=== PATIENT | female | born 1995 | race Caucasian/White ===

== ENCOUNTER 2017-06-29 20:35 | Emergency (ER) | payer BC ==
[~2017-06-29] VITALS: Ht 154.9 cm; Wt 79.5 kg
[~2017-06-29 20:35] MED LIST: ADVAIR 250/501 DISK IH; ALBUTEROL SULF8.5 GM IH; FLUOXETINE HCL20 MG PO; NOHOMEMEDS; PREDNISONE20 MG PO
[2017-06-29] MEDS ORDERED: AUGMENTIN875 MG PO (23:16)
[2017-06-30 00:42] VITALS: BP 125/89
[2017-06-30] MEDS ORDERED: MOTRIN800 MG PO (20:07)
[2017-06-30] MEDS ORDERED: ULTRACET1 TABLET PO (20:07)
== END 2017-06-30 00:58 | disposition home or self-care (01) ==
LOC: EME 20:35
PROC: 3E0234Z Introduction of Serum, Toxoid and Vaccine into Muscle, Percutaneous Approach (ICD-10-PCS; principal; 2017-06-29)
DX: L03.113 Cellulitis of right upper limb (principal); S60.812A Abrasion of left wrist, initial encounter; S60.811A Abrasion of right wrist, initial encounter; S50.812A Abrasion of left forearm, initial encounter; S50.811A Abrasion of right forearm, initial encounter; W55.01XA Bitten by cat, initial encounter; W55.03XA Scratched by cat, initial encounter; Z23 Encounter for immunization
CPT/HCPCS: 99281; 99285; J0295; J1885; J7050

== ENCOUNTER 2017-06-30 18:19 | Emergency (ER) | payer BC ==
[~2017-06-30] VITALS: Ht 152.4 cm; Wt 78.9 kg
[~2017-06-30 18:19] MED LIST changes: +AUGMENTIN875 MG PO
[2017-06-30] MEDS ORDERED: ULTRACET1 TABLET PO (20:07)
[2017-06-30] MEDS ORDERED: MOTRIN800 MG PO (20:07)
[2017-06-30 20:10] VITALS: BP 114/66
== END 2017-06-30 20:18 | disposition home or self-care (01) ==
LOC: EME 18:19
DX: S60.511A Abrasion of right hand, initial encounter (principal); L08.9 Local infection of the skin and subcutaneous tissue, unspecified; W55.03XA Scratched by cat, initial encounter; W55.01XA Bitten by cat, initial encounter
CPT/HCPCS: 87070; 87075; 87077; 87205; 99281; 99283